=== PATIENT | male | born 1985 | race Hispanic/Latino ===

== ENCOUNTER → 2018-12-15 | Outpatient (CLI) | payer OTHER ==
--- NOTE | 2018-12-15 09:41 | Diagnostic Imaging Report ---
MRI of the right tibia/fibula without contrast. History: Calf injury. Fall. Bruising. Sprain Technique: Multiplanar multisequence MRI of the right tibia/fibula without contrast. Findings: There is no acute fracture, subluxation or avascular necrosis. Mild scattered degenerative changes are seen. No osseous erosion. No ligamentous or tendon tear is seen. The visualized muscles are normal in size, signal intensity and morphology. The visualized neurovascular bundles are intact. Impression: Mild scattered degenerative changes are seen. No osseous erosion. No ligamentous or tendon tear is seen. The visualized muscles are normal in size, signal intensity and morphology. Signed by: Dr. Ra Grigsby M.D. on 12/15/2018 9:38 AM
== END ==
LOC: MRI 07:52
PROVIDERS: ATTEND Family Medicine
DX: S89.91XD Unspecified injury of right lower leg, subsequent encounter (principal)